=== PATIENT | female | born 1985 | race Asian ===

== ENCOUNTER 2018-07-09 13:09 | Emergency (ER) | payer OTHER ==
[2018-07-09 13:21] VITALS: BP 108/71; PULSE 81; TEMP 97.8; BMI 18.3
[2018-07-09] MEDS ORDERED: RABIES VACCINE (PCEC)/PF 2.5 UNIT/VIAL IM ONE (13:29)
--- NOTE | 2018-07-09 13:40 | PDOC ---
History of Present Illness - General Chief Complaint: Revisit,Rabies Injection Stated Complaint: SENT BY PCP/DOG BITE Time Seen by Provider: 07/09/18 13:29 History Source: Patient Exam Limitations: No Limitations - History of Present Illness Initial Comments: 07/09/18 14:06 Works for [employer], and well grooming a pitbull, Tiffanie became agitated and bit her in the left hand. Was seen at [facility] urgent care but instructed to come to emergency department for evaluation and possible rabies prophylaxis. Denies numbness or tingling to fingers, but is unable to make a fist secondary to pain and swelling. Timing/Duration: 4-6 hours Severity: mild, moderate Past History - Travel Traveled outside of the country in the last 30 days: No Close contact w/someone who was outside of country & ill: No - Past Medical History Allergies/Adverse Reactions: Allergies Allergy/AdvReac Type Severity Reaction Status Date / Time No Known Allergies Allergy Verified 07/09/18 13:18 Home Medications: Ambulatory Orders NK [No Known Home Medication] 07/09/18 - Suicide/Smoking/Psychosocial Hx Smoking History: Never smoked Review of Systems - Review of Systems Able to Perform ROS?: Yes Is the patient limited Yoruba proficient: Yes Constitutional: Yes: Symptoms Reported, See HPI HEENTM: Yes: See HPI. No: Symptoms Reported Respiratory: No: Symptoms reported Musculoskeletal: Yes: Symptoms Reported, See HPI, Joint Pain, Joint Swelling Integumentary: Yes: Symptoms Reported, See HPI, Bruising All Other Systems: Reviewed and Negative *Physical Exam - Vital Signs Last Vital Signs Temp Pulse Resp BP Pulse Ox 97.8 F 81 18 108/71 100 07/09/18 13:18 07/09/18 13:18 07/09/18 13:18 07/09/18 13:18 07/09/18 13:18 - Physical Exam General Appearance: Yes: Nourished, Appropriately Dressed, Apparent Distress, Mild Distress HEENT: positive: SAMANTHA, Normal ENT Inspection, TMs Normal, Pharynx Normal Neck: negative: Tender Extremity: positive: Normal Capillary Refill (left hand at third fourth MCP), Tender, Other ( mild swelling and ecchymoses, and puncture wound noted to the dorsum of left hand at third MCP and superficial abrasion to the proximal phalanx of fourth finger. Range of motion is limited secondary to tenderness however neurovascular intact distal to injuries). negative: Normal Inspection, Normal Range of Motion Integumentary: positive: Swelling, Ecchymosis, Bruising Neurologic: positive: internship coordinator II-XII NML intact, Fully Oriented, Alert, Normal Mood/ Affect, Normal Response, Motor Strength 5/5 Moderate Sedation - Procedure Monitoring Vital Signs: Procedure Monitoring Vital Signs Temperature 97.8 F 07/09/18 13:18 Pulse Rate 81 07/09/18 13:18 Respiratory Rate 18 07/09/18 13:18 Blood Pressure 108/71 07/09/18 13:18 O2 Sat by Pulse Oximetry (%) 100 07/09/18 13:18 Medical Decision Making - Medical Decision Making 07/09/18 14:05 X-ray negative for bone involvement, will continue Augmentin as previously prescribed, keep hand highly elevated and follow-up in 2-3 days *DC/Admit/Observation/Transfer Diagnosis at time of Disposition: Dog bite of hand Qualifiers: Encounter type: initial encounter Laterality: left Qualified Code(s): S61.452A - Open bite of left hand, initial encounter - Discharge Dispostion Disposition: HOME Condition at time of disposition: Stable Decision to Admit order: No - Referrals - Patient Instructions Printed Discharge Instructions: DI for Dog Bite Additional Instructions: Rest, keep area elevated. Avoid strenuous activity or exercise until wound is healed Use hot soaks to area to bring more blood to the surface and encourage drainage May change dressings as needed to keep clean - trying to avoid removal of packing for 2 days. Allow water from shower to wash area thoroughly for 2-3 minutes, and pat dry upon exit of shower and replace dressing. Change his dressing daily until the wound is completely healed. May use Tylenol or Motrin for mild pain relief Continue all medications as prescribed Followup with private physician in 2-3 days for wound check Return to emergency Department for worsening swelling, pain, redness, fevers as needed - Post Discharge Activity Forms/Work/School Notes: Back to Work
== END 2018-07-09 14:19 | disposition home or self-care (01) ==
LOC: JERFT 13:09
DX: S61.452A Open bite of left hand, initial encounter (principal); S60.415A Abrasion of left ring finger, initial encounter; W54.0XXA Bitten by dog, initial encounter; Y93.K9 Activity, other involving animal care; Y92.538 Other ambulatory health services establishments as the place of occurrence of the external cause; Y99.0 Civilian activity done for income or pay
CPT/HCPCS: 73130-TC-LT-FY; 99281-25